=== PATIENT | male | born 1955 | race Caucasian/White ===

== ENCOUNTER 2017-04-06 13:10 | Emergency (ER) | payer MEDICARE ==
[2017-04-06] MEDS: BUPIVACAINE HCL/PF 5 MG/ML 10ML VIAL IJ ONE (13:10)
--- NOTE | 2017-04-06 13:16 | ED Physician Documentation ---
General Adult - HISTORIAN Historian: patient - HPI Stated Complaint: cut finger Chief Complaint: General Adult Additional Information: Finger caught in metal folding chair. Last ate and drank at 0800. Onset: minutes - ROS CONST: no problems - PAST HX Past History: other (NIDDM) Surgeries/Procedures: other (amputation right leg, 2/2 trauma) Allergies/Adverse Reactions: Allergies Allergy/AdvReac Type Severity Reaction Status Date / Time Penicillins Allergy Verified 04/06/17 13:12 Home Medications: Ambulatory Orders Medication Instructions Recorded Diabetic Medication 04/06/17 - SOCIAL HX Smoking History: non-smoker Alcohol Use: none - FAMILY HX Family History: No (no signif) - REVIEWED ASSESSMENTS Nursing Assessment Reviewed: Yes Vitals Reviewed: Yes Progress - Progress Progress: 1315, digital block left 3rd finger, with 1.5 ml 0.5% bupivacaine Unsure of tetanus so given Adacel. 3 views of the left hand Clinical history: Left finger injury Findings: There is comminuted fracture of the distal 3rd phalanx with ulnar subluxation of the distal phalanx. The fracture fragment separation measures approximately 2 mm. There is apex dorsal angulation, which is mild Impression:. Distal 3rd phalanx fracture as above Electronically signed on April 06, 2017 1:46:00 PM CDT by: José Antonio Vang [id number], accepted for transfer to [facility] ER per Dr. Michaud, plastics. ED Results Lab/Radiology - Orders Orders: ED Orders Category Date Time Status FINGER 2 VIEWS OR MORE [RAD] Stat Exams 04/06/17 Ordered Bupivacaine HCl/Pf [Marcaine 0.5%] Med 04/06/17 13:12 Discontinued 50 mg IJ NOW ONE Diph,Pertuss(Acell),Tet Vac/Pf [Adacel] Med 04/06/17 13:14 Once 0.5 ml IM .ONCE ONE General Adult Physical Exam - PHYSICAL EXAM GENERAL APPEARANCE: obese EENT: eye inspection normal, ENT inspection normal NECK: normal inspection, supple RESPIRATORY: no resp distress BACK: normal inspection, other (movements w/o pain) SKIN: warm/dry, normal color EXTREMITIES: other (near circumferential laceration left 3rd finger, distal phalanx. Skin in tact for <1 cm volar surface. ) NEURO: CN's nml as tested, motor nml, sensation nml Discharge Clincal Impression: Open fracture of finger of left hand Qualifiers: Encounter type: initial encounter Qualified Code(s): S62.609B - Fracture of unspecified phalanx of unspecified finger, initial encounter for open fracture Referrals: Primary Doctor,No [Primary Care Provider] - 2 Days Home Medications: Ambulatory Orders Diabetic Medication 04/06/17 Condition: Fair Disposition: 02 XFER [facility]M HOSP Decision to Admit: NO Decision Time: 13:47
[2017-04-06] MEDS: DIPH,PERTUSS(ACELL),TET VAC/PF 0.5 ML DISP.SYRIN IM ONE (13:28)
--- NOTE | 2017-04-06 13:48 | Diagnostic Imaging Report ---
[facility] [address] [facility].[address] [id number] Report Submission Date: April 06, 2017 1:46:00 PM CDT Patient Study Name: JASON BEGUM Date: April 06, 2017 1:18:34 PM CDT Modality Type: CR Gender: M Description: UPPER EXTREMITY : 59 Institution: [facility] Physician: POOJA EATON - ER 3 views of the left hand Clinical history: Left finger injury Findings: There is comminuted fracture of the distal 3rd phalanx with ulnar subluxation of the distal phalanx. The fracture fragment separation measures approximately 2 mm. There is apex dorsal angulation, which is mild Impression:. Distal 3rd phalanx fracture as above Electronically signed on April 06, 2017 1:46:00 PM CDT by: José Antonio DORAN
[2017-04-06 14:05] VITALS: BP 163/97
== END 2017-04-06 14:00 | disposition short-term general hospital (02) ==
LOC: ED 13:10
DX: S62.609B Fracture of unspecified phalanx of unspecified finger, initial encounter for open fracture (principal); W23.0XXA Caught, crushed, jammed, or pinched between moving objects, initial encounter; Y93.9 Activity, unspecified; Y99.9 Unspecified external cause status
CPT/HCPCS: 73140; 90715; J3490; 90471; 99283